=== PATIENT | female | born 1975 | race Two or more races ===

== ENCOUNTER 2020-12-11 12:02 | Inpatient (IN) | payer BC, MEDICAID ==
[2020-12-11] VITALS (7 sets, daily range): BP systolic 119–151; BP diastolic 68–91
[~2020-12-11] VITALS: Ht 160 cm; Wt 70.5 kg
[~2020-12-11 12:02] MED LIST: CYCL-1 PO; HYDR-4383 PO
[2020-12-11 13:14] LABS: BASOPHILS # (AUTO) 0.1 X10'3 (0-0.2); BASOPHILS % (AUTO) 1.7 % (0-1); EOSINOPHILS # (AUTO) 0.1 X10'3 (0-0.9); HEMATOCRIT 22.5 % (35.0-45.0); LYMPHOCYTES # (AUTO) 1.9 X10'3 (1.1-4.8); LYMPHOCYTES % (AUTO) 47.9 % (21-51); MEAN CORPUSCULAR HEMOGLOBIN 15.7 PG (27.0-31.0); MEAN CORPUSCULAR HGB CONC 28.4 g/dL (33.0-36.5); MEAN CORPUSCULAR VOLUME 55.4 FL (78-98); MEAN PLATELET VOLUME 8.2 FL (7.4-10.4); MONOCYTES # (AUTO) 0.3 X10'3 (0-0.9); MONOCYTES % (AUTO) 7.3 % (2-12); NEUTROPHILS # (AUTO) 1.6 X10'3 (1.8-7.7); NEUTROPHILS % (AUTO) 40.1 % (42-75); PLATELET COUNT 271 X10'3 (140-440); RED BLOOD COUNT 4.07 X10'6 (4.20-5.60); RED CELL DISTRIBUTION WIDTH 20.1 % (11.5-14.5)
[2020-12-11 13:15] LABS: URINE HCG NEGATIVE (NEG)
[2020-12-11 13:18] LABS: CLARITY,URINE CLEAR (Clear); COLOR,URINE STRAW (Yellow); GLUCOSE, URINE NEGATIVE (Neg); KETONES,URINE NEGATIVE (Neg); LEUKOCYTE ESTERASE ,URINE NEGATIVE (Neg); NITRITES, URINE NEGATIVE (Neg); OCCULT BLOOD,URINE MODERATE (Neg); PROTEIN,URINE NEGATIVE (Neg); UA COLLECTION TYPE CLN CATCH MIDSTREAM; UROBILINOGEN,URINE 0.2 E.U/dL (0.2-1.0)
[2020-12-11 13:23] LABS: BACTERIA,URINE FEW /HPF (Neg); RBC,URINE 20-50 /HPF (0-2); SQUAMOUS EPITHELIAL CELL,UR MODERATE /LPF (FEW); WBC,URINE 0-4 /HPF (0-4)
[2020-12-11 13:26] LABS: PARTIAL THROMBOPLASTIN TIME 23 SECONDS (22-32)
[2020-12-11 13:39] LABS: ALANINE AMINOTRANSFERASE 13 U/L (12-78); ALBUMIN 3.7 G/DL (3.4-5.0); ALBUMIN/GLOBULIN RATIO 0.9 (1.1-1.5); ALKALINE PHOSPHATASE 53 IU/L (46-116); ANION GAP 8 (8-16); ASPARTATE AMINO TRANSFERASE 14 U/L (10-37); BILIRUBIN,TOTAL 0.4 MG/DL (0.1-1.0); BLOOD UREA NITROGEN 12 MG/DL (7-18); BUN/CREATININE RATIO 22.2 (6.6-38.0); CALCIUM 8.7 MG/DL (8.5-10.1); CHLORIDE 107 MMOL/L (99-107); CREATININE 0.54 MG/DL (0.40-0.90); GLUCOSE 89 MG/DL (70-104); POTASSIUM 3.8 MMOL/L (3.5-5.1); SODIUM 141 MMOL/L (135-145); TOTAL CARBON DIOXIDE 26.2 MMOL/L (24-32); TOTAL PROTEIN 7.8 G/DL (6.4-8.2); eGFR > 90 ML/MIN
[2020-12-11 13:43] LABS: HEMOGLOBIN 6.4 g/dl (12.0-16.0)
[2020-12-11 13:50] LABS: ANISOCYTOSIS 3+; HYPOGRANULAR PLATELETS FEW; MICROCYTOSIS 3+; PLATELET ESTIMATE NORMAL
[2020-12-11 13:51] LABS: ELLIPTOCYTES 1+; SCHISTOCYTES FEW; TEAR DROP CELLS FEW
[2020-12-11 13:52] LABS: SPHEROCYTES FEW
[2020-12-11] MEDS ORDERED: DEXM5CPB PO (14:01)
[2020-12-11] MEDS ORDERED: KETO5DRO75 EACHEYE (14:02)
--- NOTE | 2020-12-11 15:59 | NUR ---
Blood transfusion started, monitoring for reaction, patient educated re s/s of transfusion reaction
[2020-12-11] MEDS ORDERED: diphenhydrAMINE 25mg capsule PO PRN (17:10)
[2020-12-11] MEDS ORDERED: HYDROcodone/acetaminophen 10/325mg tab PO PRN (17:10)
[2020-12-11] MEDS ORDERED: potassium Cl 40MEQ/1/2NS 520ml 520 ML IV PRN ×2 (17:10)
[2020-12-11] MEDS ORDERED: morphine 2 MG/ML inj. syringe IV PRN ×2 (17:10)
[2020-12-11] MEDS ORDERED: magnesium hydroxide 30ml (MOM) UD suspension PO PRN (17:10)
[2020-12-11] MEDS ORDERED: magnesium 4gm in 100ml NS 100 ML IV PRN (17:10)
[2020-12-11] MEDS ORDERED: mag hydrox/Alum hydrox/simeth 30ml oral suspension PO PRN (17:10)
[2020-12-11] MEDS ORDERED: HYDROcodone/acetaminophen 5mg/325mg tablet PO PRN (17:10)
[2020-12-11] MEDS ORDERED: magnesium 2GM in 50ml NS 50 ML IV PRN (17:10)
[2020-12-11] MEDS ORDERED: acetaminophen 325mg tablet PO PRN ×2 (17:10)
[2020-12-11] MEDS ORDERED: ondansetron/PF 4mg/2ml inj IV PRN (17:10)
[2020-12-11] MEDS ORDERED: potassium Cl 20 mEq SR tablet PO PRN ×2 (17:10)
[2020-12-11] MEDS ORDERED: magnesium Cl slow-release 64mg tablet PO PRN (17:10)
[2020-12-11 17:52] LABS: % IRON SATURATION 3 % (11-46); IRON 13 UG/DL (49-151); TOTAL IRON BINDING CAPACITY 504 UG/DL (259-388)
[2020-12-11 17:56] LABS: FERRITIN 3 NG/ML (8-252)
[2020-12-11 18:02] LABS: HEMOGLOBIN A1C 5.5 % (4.5-6.2)
[2020-12-11] MEDS: pantoprazole 40 MG vial IV SCH ×2 (18:02→20:00)
[2020-12-11] MEDS: normal saline 1000ml 1,000 ML IV SCH (18:03)
--- NOTE | 2020-12-11 19:01 | NUR ---
Assumed care of patient at 1845 in patient room available report called
--- NOTE | 2020-12-11 19:30 | NUR ---
PATIENT ADMITTED TO ROOM 355B FROM ER FOR SYMPTOMATIC ANEMIA AND G I BLEED?. PLACED COMFORTABLE IN BED. VITAL SIGNS TAKEN AND RECORDED.
[2020-12-11] MEDS: K and/or MAG REPLACEMENT MC SCH (20:00)
[2020-12-11] MEDS: sodium ferric gluc complex inj 125 MG in normal saline 100ml IV soln 90 ML IV SCH (20:24)
[2020-12-12] VITALS: BP 123/80
[2020-12-12 00:05] VITALS: BP 112/68
[2020-12-12 01:05] VITALS: BP 121/69
[2020-12-12] MEDS: normal saline 1000ml 1,000 ML IV SCH ×2 (03:10→08:59)
--- NOTE | 2020-12-12 06:30 | NUR ---
Problems reprioritized. Patient report given, questions answered & plan of care reviewed with MARIKA MALDONADO.
[2020-12-12 07:00] VITALS: BP 123/86
--- NOTE | 2020-12-12 07:06 | NUR ---
Patient in room [facility] 355B. I have received report from WILFREDO VILLALOBOS RN and had the opportunity to ask questions and assume patient care.
[2020-12-12 07:11] LABS: BASOPHILS # (AUTO) 0.1 X10'3 (0-0.2); HEMOGLOBIN 8.1 g/dl (12.0-16.0); LYMPHOCYTES # (AUTO) 1.7 X10'3 (1.1-4.8); MEAN PLATELET VOLUME 8.2 FL (7.4-10.4)
[2020-12-12 07:13] LABS: EOSINOPHILS # (AUTO) 0.2 X10'3 (0-0.9); EOSINOPHILS % (AUTO) 4.9 % (0-6); HEMATOCRIT 26.5 % (35.0-45.0); MEAN CORPUSCULAR HEMOGLOBIN 19.3 PG (27.0-31.0); MEAN CORPUSCULAR HGB CONC 30.7 g/dL (33.0-36.5); MEAN CORPUSCULAR VOLUME 62.8 FL (78-98); MONOCYTES # (AUTO) 0.4 X10'3 (0-0.9); MONOCYTES % (AUTO) 10.2 % (2-12); NEUTROPHILS # (AUTO) 1.6 X10'3 (1.8-7.7); NEUTROPHILS % (AUTO) 39.9 % (42-75); PLATELET COUNT 218 X10'3 (140-440); RED BLOOD COUNT 4.22 X10'6 (4.20-5.60); RED CELL DISTRIBUTION WIDTH 29.3 % (11.5-14.5)
[2020-12-12 07:33] LABS: ANION GAP 7 (8-16); BLOOD UREA NITROGEN 8 MG/DL (7-18); BUN/CREATININE RATIO 12.5 (6.6-38.0); CHLORIDE 109 MMOL/L (99-107); CREATININE 0.64 MG/DL (0.40-0.90); GLUCOSE 87 MG/DL (70-104); POTASSIUM 3.9 MMOL/L (3.5-5.1); SODIUM 141 MMOL/L (135-145); TOTAL CARBON DIOXIDE 25.3 MMOL/L (24-32)
[2020-12-12 07:34] LABS: ALANINE AMINOTRANSFERASE 13 U/L (12-78); ALBUMIN 3.1 G/DL (3.4-5.0); ALBUMIN/GLOBULIN RATIO 0.9 (1.1-1.5); ALKALINE PHOSPHATASE 45 IU/L (46-116); ASPARTATE AMINO TRANSFERASE 7 U/L (10-37); BILIRUBIN,TOTAL 0.5 MG/DL (0.1-1.0); CALCIUM 8.1 MG/DL (8.5-10.1); CHOL/HDL RATIO 3.2 (0.00-4.99); CHOLESTEROL 149 MG/DL (0-200); HDL CHOLESTEROL 47 MG/DL (35-60); LDL CHOLESTEROL 92 MG/DL (50-100); MAGNESIUM 2.1 MG/DL (1.5-2.4); PHOSPHORUS 3.1 MG/DL (2.3-4.5); TOTAL PROTEIN 6.6 G/DL (6.4-8.2); TRIGLYCERIDES 100 MG/DL (20-135); eGFR > 90 ML/MIN
[2020-12-12] MEDS: K and/or MAG REPLACEMENT MC SCH (08:00)
[2020-12-12 08:18] LABS: ANISOCYTOSIS 3+; ELLIPTOCYTES 1+; HYPOCHROMASIA 1+; MICROCYTOSIS 2+; PLATELET ESTIMATE NORMAL
[2020-12-12 08:19] LABS: BURR CELLS FEW
[2020-12-12 08:21] LABS: LARGE PLATELETS FEW
[2020-12-12 08:22] LABS: SCHISTOCYTES FEW
[2020-12-12] MEDS: pantoprazole 40 MG vial IV SCH (08:59)
[2020-12-12] MEDS: sodium ferric gluc complex inj 125 MG in normal saline 100ml IV soln 90 ML IV SCH (09:16)
[2020-12-12 11:00] VITALS: BP 136/80
[2020-12-12] MEDS ORDERED: PANT40TA54 PO (11:12)
[2020-12-12] MEDS ORDERED: ASCO-134 PO (11:12)
[2020-12-12] MEDS ORDERED: FERR325T28 PO (11:12)
--- NOTE | 2020-12-12 11:56 | NUR ---
Dr. Parson rounded and saw pt confirming pt is ready for discharge. JOEL Lee, aware.
--- NOTE | 2020-12-12 14:26 | NUR ---
PATIENT STABLE AND APPROPRIATE FOR DISCHARGE, IV TAKEN OUT, EDUCATION GIVEN, NEW MEDS E-SCRIPTED TO PREFERRED PHARMACY, ALL BELONGINGS SENT WITH PATIENT, PATIENT TAKEN TO LOBBY BY WHEELCHAIR TO AN AWAITING CAR WHERE FAMILY MEMBER WILL TAKE PATIENT HOME.
== END 2020-12-12 12:28 | disposition home or self-care (01) | DRG 761 ==
LOC: ER 12:03 → ED HOLD 17:08 → SUR 3N 19:27
PROVIDERS: ADMIT Family Medicine; ATTEND Family Medicine
PROC: 30233N1 Transfusion of Nonautologous Red Blood Cells into Peripheral Vein, Percutaneous Approach (ICD-10-PCS; principal; 2020-12-11)
DX: N92.0 Excessive and frequent menstruation with regular cycle (principal); D50.9 Iron deficiency anemia, unspecified; F90.9 Attention-deficit hyperactivity disorder, unspecified type; F32.9 Major depressive disorder, single episode, unspecified; F41.9 Anxiety disorder, unspecified; R31.29 Other microscopic hematuria; Z83.3 Family history of diabetes mellitus; Z88.2 Allergy status to sulfonamides; Z90.49 Acquired absence of other specified parts of digestive tract
CPT/HCPCS: 36415; 36430; 71045; 80053; 80061; 81001; 81003; 81025; 82728; 82948; 83036; 83540; 83550; 83735; 84100; 84443; 84484; 85008; 85025; 85610; 85730; 86885; 86900; 86901; 86920; 87081; 93005; C9113; G0378; J2916; J7030; P9016

== ENCOUNTER 2022-08-20 13:15 | Emergency (ER) | payer BC ==
[~2022-08-20] VITALS: Ht 157.5 cm; Wt 67.3 kg
[~2022-08-20 13:15] MED LIST changes: +ASCO-134 PO; -CYCL-1 PO; +DEXM5CPB PO; -HYDR-4383 PO; +KETO5DRO75 EACHEYE; +PANT40TA54 PO
[2022-08-20 13:36] VITALS: BP 161/112
[2022-08-20 14:13] LABS: BASOPHILS % (AUTO) 0.4 % (0-1); EOSINOPHILS % (AUTO) 0 % (0-6); HEMATOCRIT 45.5 % (35.0-45.0); HEMOGLOBIN 15.1 g/dl (12.0-16.0); LYMPHOCYTES # (AUTO) 0.6 X10'3 (1.1-4.8); LYMPHOCYTES % (AUTO) 7.6 % (21-51); MEAN CORPUSCULAR HEMOGLOBIN 28.6 PG (27.0-31.0); MEAN CORPUSCULAR HGB CONC 33.1 g/dL (33.0-36.5); MEAN CORPUSCULAR VOLUME 86.3 FL (78-98); MONOCYTES # (AUTO) 0.1 X10'3 (0-0.9); NEUTROPHILS # (AUTO) 6.9 X10'3 (1.8-7.7); PLATELET COUNT 241 X10'3 (140-440); RED BLOOD COUNT 5.27 X10'6 (4.20-5.60); RED CELL DISTRIBUTION WIDTH 13.9 % (11.5-14.5); WHITE BLOOD COUNT 7.6 X10'3 (4.5-11.0)
[2022-08-20 14:23] LABS: ALANINE AMINOTRANSFERASE 17 U/L (12-78); ALBUMIN 4.1 G/DL (3.4-5.0); ALBUMIN/GLOBULIN RATIO 0.9 (1.1-1.5); ALKALINE PHOSPHATASE 86 IU/L (46-116); ANION GAP 8 (8-16); ASPARTATE AMINO TRANSFERASE 22 U/L (10-37); BILIRUBIN,TOTAL 0.4 MG/DL (0.1-1.0); BLOOD UREA NITROGEN 15 MG/DL (7-18); BUN/CREATININE RATIO 18.8 (6.6-38.0); CALCIUM 9.2 MG/DL (8.5-10.1); CHLORIDE 103 MMOL/L (99-107); GLUCOSE 114 MG/DL (70-104); POTASSIUM 3.6 MMOL/L (3.5-5.1); SODIUM 137 MMOL/L (135-145); TOTAL CARBON DIOXIDE 26.5 MMOL/L (24-32); TOTAL PROTEIN 8.7 G/DL (6.4-8.2); eGFR 78 ML/MIN
[2022-08-20] MEDS ORDERED: ALPRAZolam 0.5mg tablet PO ONE (15:10)
== END 2022-08-20 17:18 | disposition home or self-care (01) ==
LOC: ER 13:16
DX: R07.89 Other chest pain (principal); I10 Essential (primary) hypertension; F41.9 Anxiety disorder, unspecified; F32.A Depression, unspecified; Z86.2 Personal history of diseases of the blood and blood-forming organs and certain disorders involving the immune mechanism; Z90.49 Acquired absence of other specified parts of digestive tract; Z98.890 Other specified postprocedural states; Z88.2 Allergy status to sulfonamides; Z79.899 Other long term (current) drug therapy
CPT/HCPCS: 36415; 71045; 80053; 83880; 84484; 85025; 93005; 99285